=== PATIENT | male | born 1940 | race Caucasian/White ===

== ENCOUNTER → 2016-08-23 | Day surgery (SDC) | payer MEDICARE ==
[~2016-08-23] MED LIST: DEXAMETHASONE SOD PHOS 4 MG/ML VIAL ONE; EPINEPHrine HCL (1:1000) 1 MG/ML VIAL ONE; LACTATED RINGER'S 1000 ML INJ 1,000 ML ONE; MIDAZOLAM HCL 2 MG/2 ML VIAL ONE; MOXIFLOXACIN 0.5% OPHT SOLN 3 ML BTL ONE; ONDANSETRON HCL 4 MG/2 ML VIAL IV PUSH ONE; PHENYLEPHRINE HCL 10% OPTH SOLN 5 ML BTL ONE; PROPOFOL 200 MG/20 ML AMP IV ONE; SODIUM CHLORIDE 0.9% INJ 10 ML ONE; TETRACAINE 0.5% OPTH SOLN 15 ML BTL ONE; TOBRAMYCIN 0.3%/DEXAMETHASONE 0.1% OPHT SUSP 5 ML BTL ONE; TOBRAMYCIN/DEXAMETHASONE OPTH OINT 3.5 GM TUBE ONE; ceFAZolin INJ 1,000 MG VIAL ONE; prednisoLONE ACETATE 1% OPHT SUSP 5 ML BTL ONE
--- NOTE | 2016-08-24 09:44 | TN ---
cc: JAMEEL ROBERTS MD DATE OF SURGERY: 08/23/2016 DATE OF : 1940 PREOPERATIVE DIAGNOSIS 1. Full-thickness macular hole, right eye. 2. Retinal tear, right eye. POSTOPERATIVE DIAGNOSIS 1. Full-thickness macular hole, right eye. 2. Retinal tear, right eye. PROCEDURE Pars plana vitrectomy, ILM/ERM removal, macular hole closure, endolaser, air-fluid exchange, insertion of 18% SF6 gas, right eye. COMPLICATIONS None. ESTIMATED BLOOD LOSS Less than 1 cc. ANESTHESIA General, Dr. Navarro INDICATION FOR PROCEDURE This delightful patient presented with a full-thickness macular hole and nuclear sclerotic cataract. The patient proceeded with cataract removal and then elected for surgical correction of his macular hole. The patient had a retinal tear which was previously treated. PROCEDURE NOTE After informed consent was obtained, the patient was brought to the operating room where general anesthesia was established. The right eye was prepped and draped in sterile fashion with Betadine in the conjunctival fornix. The core vitreous was evacuated and peripheral vitreous traction relieved. The ILM was highlighted with ICG and removed with ILM forceps. The peripheral retinal hole/tear was treated with endolaser. Scleral depression examination revealed no untreated retinal holes, tears or detachments. Air-fluid exchange was carried out, the macular hole noted to close. 18% SF6 gas was instilled. Trocars were removed and sclerotomies closed. Subconjunctival injection of Ancef and dexamethasone were given. The eye was patched with tobramycin ointment. The patient was brought to the recovery room in stable condition. He is to continue follow-up with [facility] for his postoperative care. Jameel Roberts MD KW/BT /9:26 AM /9:34 AM
== END | disposition home or self-care (01) ==
LOC: ESDC 06:05
PROVIDERS: ATTEND Ophthalmology
DX: H35.341 Macular cyst, hole, or pseudohole, right eye (principal); H33.311 Horseshoe tear of retina without detachment, right eye
CPT/HCPCS: 00145; 67043; J0171; J0690; J1100; J2250; J2405; J3010; J7120